=== PATIENT | male | born 1955 | race Caucasian/White ===

== ENCOUNTER 2023-03-22 10:25 | Day surgery (SDC) | payer BC, MEDICAID ==
[2023-03-19 11:11] LABS: APTT 26 SECONDS (22-32); BASOPHILS # (AUTO) 0.1 X10'3 (0-0.2); BASOPHILS % (AUTO) 1.2 % (0-1); EOSINOPHILS # (AUTO) 0.3 X10'3 (0-0.9); EOSINOPHILS % (AUTO) 2.9 % (0-6); HEMATOCRIT 43.9 % (42.0-52.0); HEMOGLOBIN 14.1 g/dl (14.0-17.9); LYMPHOCYTES # (AUTO) 1.4 X10'3 (1.1-4.8); LYMPHOCYTES % (AUTO) 15.9 % (21-51); MEAN CORPUSCULAR HEMOGLOBIN 28.4 PG (27.0-31.0); MEAN CORPUSCULAR HGB CONC 32.2 g/dL (33.0-36.5); MEAN CORPUSCULAR VOLUME 88.1 FL (78-98); MEAN PLATELET VOLUME 9.6 FL (7.4-10.4); MONOCYTES # (AUTO) 0.7 X10'3 (0-0.9); MONOCYTES % (AUTO) 7.9 % (2-12); NEUTROPHILS # (AUTO) 6.4 X10'3 (1.8-7.7); NEUTROPHILS % (AUTO) 72.1 % (42-75); PLATELET COUNT 265 X10'3 (140-440); RED BLOOD COUNT 4.98 X10'6 (4.70-6.10); RED CELL DISTRIBUTION WIDTH 13.8 % (11.5-14.5); WHITE BLOOD COUNT 8.9 X10'3 (4.5-11.0)
[2023-03-19 11:16] LABS: ALBUMIN 2.8 G/DL (3.4-5.0); ANION GAP 8 (8-16); BLOOD UREA NITROGEN 14 MG/DL (7-18); BUN/CREATININE RATIO 14.7 (10.0-20.0); CALCIUM 9.2 MG/DL (8.5-10.1); CHLORIDE 102 MMOL/L (99-107); CHOLESTEROL 89 MG/DL (0-200); CREATININE 0.95 MG/DL (0.60-1.10); GLUCOSE 115 MG/DL (70-104); HDL CHOLESTEROL 30 MG/DL (35-60); LDL CHOLESTEROL 46 MG/DL (50-100); POTASSIUM 4.1 MMOL/L (3.5-5.1); SODIUM 139 MMOL/L (135-145); TOTAL CARBON DIOXIDE 29.1 MMOL/L (24-32); TRIGLYCERIDES 98 MG/DL (20-135); eGFR 78 ML/MIN
[2023-03-22] VITALS (7 sets, daily range): BP systolic 135–173; BP diastolic 67–77
[~2023-03-22] VITALS: Ht 177.8 cm; Wt 96.9 kg
[~2023-03-22 10:25] MED LIST: DIAZ-351 PO; OXYC-134 PO
[2023-03-22] MEDS ORDERED: LORazepam 0.5 MG tablet PO PRN (10:45)
[2023-03-22] MEDS ORDERED: diphenhydrAMINE 25mg capsule PO PRN (10:45)
[2023-03-22] MEDS ORDERED: normal saline 1,000 ML IV SCH (10:45)
[2023-03-22] MEDS ORDERED: LOSA50TA64 PO (10:52)
[2023-03-22] MEDS ORDERED: DAPA5TAB PO (10:52)
[2023-03-22] MEDS ORDERED: ATOR40TA72 PO (10:52)
[2023-03-22] MEDS ORDERED: ASPI-1265 PO (10:52)
[2023-03-22] MEDS ORDERED: METF-438 PO (10:52)
[2023-03-22] MEDS ORDERED: LANTUS SQ (10:52)
[2023-03-22] MEDS ORDERED: DULA0.75 SQ (10:52)
[2023-03-22] MEDS ORDERED: DILT120T3 PO (10:52)
[2023-03-22] MEDS ORDERED: FURO20TA4 PO (10:52)
[2023-03-22] MEDS ORDERED: verapamil 2.5 mg/ml inj IV ONE (11:56)
[2023-03-22] MEDS ORDERED: nitroGLYCERIN-Tridil 50MG/D5W 250 ML IV ONE (11:56)
[2023-03-22] MEDS ORDERED: iohexol 350MG/ML 100ml bottle IV ONE ×2 (11:57→13:05)
[2023-03-22] MEDS ORDERED: heparin 1,000unit/ml 10ml vial 10 ML ONE (11:57)
[2023-03-22] MEDS ORDERED: fentaNYL/PF 50MCG/1 ML 2ML syringe ONE (11:57)
[2023-03-22] MEDS ORDERED: LIDOcaine 1% (10mg/ml) 2ml vial ONE (11:57)
[2023-03-22] MEDS ORDERED: midazolam 1 mg/ML 2ml injection ONE (11:57)
[2023-03-22] MEDS ORDERED: hydrALAZINE 20mg/ml inj. IV ONE (13:02)
[2023-03-22] MEDS ORDERED: iohexol 350 MG/ML 50ML vial IV ONE (13:06)
[2023-03-22] MEDS ORDERED: nitroGLYCERIN 0.4mg SUBLingual tab SL ONE (14:10)
== END 2023-03-22 15:27 | disposition home or self-care (01) ==
LOC: SSTAY O 10:25
PROVIDERS: ATTEND Student in an Organized Health Care Education/Training Program
DX: R94.39 Abnormal result of other cardiovascular function study (principal); I25.10 Atherosclerotic heart disease of native coronary artery without angina pectoris; I10 Essential (primary) hypertension; E11.9 Type 2 diabetes mellitus without complications; E78.5 Hyperlipidemia, unspecified; Z79.4 Long term (current) use of insulin; Z79.899 Other long term (current) drug therapy; Z79.82 Long term (current) use of aspirin; Z79.01 Long term (current) use of anticoagulants
CPT/HCPCS: 36415; 80048; 80061; 82948; 85025; 85610; 85730; 93005; 93458; 99152; 99153; C1894; J0360; J1644; J2250; J3010; J3490; J7030; Q0163; Q9967; A6258; A6402

== ENCOUNTER 2025-04-19 10:03 | Outpatient (CLI) | payer MEDICARE, MEDICAID ==
[~2025-04-19 10:03] MED LIST changes: +ALBU18HF2 IH; +ASPI-1265 PO; +ATOR40TA72 PO; +CYAN-116 PO; +DAPA10TA PO; -DIAZ-351 PO; +GLYB5TAB7 PO; +HYDR-3972 PO; +LANTUS SQ; +LOP12.5T PO; +METF-438 PO; -OXYC-134 PO; +TRIA15CR61 TP
--- NOTE | 2025-04-19 11:53 | RADIOLOGY REPORT ---
Procedure: CT CT CHEST Reason for study/Clinical History: OTHER NONSPECIFIC ABNORMAL FINDING OF LUNG FIELD Comparison Study: None TECHNIQUE: Multidetector CT of the chest was performed from the lung apices to the upper abdomen with out the use of intravenous contract. Axial, coronal and sagittal multiplanar reformats were performed . Radiation Dose Information: CT Dose: CTDI volume is 18.4 mGy. Dose-length product is 727 mGy*cm The dose indicators for CT are the volume Computed Tomography (CT) Dose Index (CTDIvol) and the Dose Length Product (DLP), and are measured in units of mGy and mGy-cm, respectively. These indicators are not patient dose, but values generated from the CT scanner acquisition factors. The report includes radiation exposure data for exposures received during this examination. FINDINGS: Lower neck: Unremarkable. Lungs: Right basilar subsegmental atelectasis. Left lower lobe compressive atelectasis. Heart/Vascular Structures: Cardiomegaly. Coronary artery calcifications. Vascular calcifications of t he aorta. Lymph Nodes: No adenopathy Pleura: Moderate left pleural effusion. Musculoskeletal: No acute osseous abnormality. Median sternotomy. Multilevel degenerative changes of the spine. Median sternotomy. Soft tissues: Normal. Upper abdomen: Limited portions of the upper abdomen are unremarkable. IMPRESSION: Moderate left pleural effusion with left lower lobe compressive atelectasis. Findings are likely related to CHF / fluid overload.
== END 2025-04-19 23:59 | disposition home or self-care (01) ==
LOC: RAD 10:03
PROVIDERS: ATTEND Nurse Practitioner Family
DX: J90 Pleural effusion, not elsewhere classified (principal); I51.7 Cardiomegaly; R91.8 Other nonspecific abnormal finding of lung field
CPT/HCPCS: 71250